=== PATIENT | male | born 1970 | race Caucasian/White ===

== ENCOUNTER 2022-11-16 23:36 | Emergency (ER) | payer SELFPAY ==
[2022-11-17 00:08] LABS: Absolute Lymphocytes (CBC) 3.2 K/uL (0.7-4.9); Hematocrit 43.3 % (39.6-49.0); Lymphocytes % 48.6 % (15.3-44.8); MCV 96.8 fL (80-100); MPV 9.3 fL (7.6-11.3); RBC Red Blood Cell Count 4.47 M/uL (4.33-5.43)
[2022-11-17 00:11] LABS: Protime INR 1.1
[2022-11-17 00:27] LABS: ALT/SGPT 23 U/L (16-61); AST/SGOT 12 U/L (15-37); Albumin 3.1 g/dL (3.4-5.0); Alkaline Phosphatase 98 U/L (45-117); BUN Blood Urea Nitrogen 10 mg/dL (7-18); Bicarbonate 24 mEq/L (21-32); Bilirubin Total 0.3 mg/dL (0.2-1.0); Glomerular Filtration Rate 100 ml/min (=/>90); Glucose Level 299 mg/dL (74-106); Magnesium 2.1 mg/dL (1.6-2.4); NT PRO-BNP 54 pg/mL (<125); Potassium 3.9 mEq/L (3.5-5.1); Protein, Total 7.3 g/dL (6.4-8.2); Sodium Level 127 mEq/L (136-145); Troponin High Sensitivity 10.5 pg/mL (<58.9)
[2022-11-17 00:32] LABS: Bilirubin Direct < 0.1 mg/dL (0-0.2); Bilirubin Indirect, Calculated ND mg/dL (0.2-0.8)
[2022-11-17] MEDS ORDERED: INSULIN -REGULAR HUMAN 50 UNIT/0.5 ML ML ONE (03:41)
--- NOTE | 2022-11-17 04:04 | ER ---
Nurse's Notes [facility] Name: Jeromy Zamora Age: 52 yrs Sex: Male : 1970 Arrival Date: 11/16/2022 Time: 23:36 Bed 19 Private MD: Diagnosis: Chest pain, unspecified;Patient's noncompliance with medical treatment and regimen Presentation: 11/16 23:48 Chief complaint: EMS states: 52 YO male complaining of chest pain that started 3 days vc1 ago with history of SC and cardiac stents. Coronavirus screen: Vaccine status: Patient reports receiving the 2nd dose of the covid vaccine. Plus multiple boosters Client denies travel out of the [place] in the last 14 days. At this time, the client does not indicate any symptoms associated with coronavirus-19. Ebola Screen: Patient negative for fever greater than or equal to 101.5 degrees Fahrenheit, and additional compatible Ebola Virus Disease symptoms Patient denies exposure to infectious person. Patient denies travel to an Ebola-affected area in the 21 days before illness onset. No symptoms or risks identified at this time. Initial Sepsis Screen: Does the patient meet any 2 criteria? RR > 20 per min. HR > 90 bpm. Yes Does the patient have a suspected source of infection? No. Patient's initial sepsis screen is negative. Risk Assessment: Do you want to hurt yourself or someone else? Patient reports no desire to harm self or others. Onset of symptoms was November 13, 2022. 23:48 Method Of Arrival: EMS: [facility] vc1 23:48 Acuity: LUCILLE 3 vc1 23:57 Care prior to arrival: Medication(s) given: ASA, 81 mg, x 4, Nitroglycerin, IV vc1 initiated. 20 GA, in the right forearm, Oxygen administered. via nasal cannula. 23:57 Care prior to arrival: IV initiated. 20 GA, in the left antecubital area. vc1 Triage Assessment: 23:52 General: Appears in no apparent distress. Behavior is calm, cooperative, appropriate vc1 for age, Smells of cigarettes. General: Smells of alcohol. Pain: Complains of pain in chest Pain does not radiate. Pain currently is 7 out of 10 on a pain scale. at worst was 9 out of 10 on a pain scale. Quality of pain is described as sharp. EENT: No deficits noted. No signs and/or symptoms were reported regarding the EENT system. Neuro: Level of Consciousness is awake, alert, obeys commands, Oriented to person, place, time, situation, Appropriate for age. Cardiovascular: Capillary refill < 3 seconds Patient's skin is warm and dry. Rhythm is sinus tachycardia Chest pain is described as severe, worse when laying flat, feels like when I had my previous SC. Respiratory: Airway is patent Respiratory effort is even, unlabored, Respiratory pattern is symmetrical, tachypnea. GI: No deficits noted. No signs and/or symptoms were reported involving the gastrointestinal system. : No deficits noted. No signs and/or symptoms were reported regarding the genitourinary system. Derm: No deficits noted. No signs and/or symptoms reported regarding the dermatologic system. Musculoskeletal: No deficits noted. No signs and/or symptoms reported regarding the musculoskeletal system. Historical: - Allergies: 23:52 Morphine; snw - Social history:: Smoking status: Patient reports the use of cigarette tobacco products, smokes two packs cigarettes per day. Screenin:55 [facility] ED Fall Risk Assessment (Adult) History of falling in the last 3 months, vc1 including since admission No falls in past 3 months (0 pts) Confusion or Disorientation No (0 pts) Intoxicated or Sedated Yes (3 pts) Impaired Gait No (0 pts) Mobility Assist Device Used No (0 pt) Altered Elimination No (0 pt) Score/Fall Risk Level 3 or more points = High Risk Oriented to surroundings, Maintained a safe environment, Educated pt \T\ family on fall prevention, incl call for assistance when getting out of bed. Abuse screen: Denies threats or abuse. Nutritional screening: No deficits noted. Tuberculosis screening: No symptoms or risk factors identified. Assessment: 11/17 00:00 Reassessment: No changes from previously documented assessment. Patient and/or family vc1 updated on plan of care and expected duration. Pain level reassessed. Patient is alert, oriented x 3, equal unlabored respirations, skin warm/dry/pink. 01:00 Reassessment: No changes from previously documented assessment. Patient and/or family vc1 updated on plan of care and expected duration. Pain level reassessed. Patient is alert, oriented x 3, equal unlabored respirations, skin warm/dry/pink. 02:00 Reassessment: No changes from previously documented assessment. Patient and/or family vc1 updated on plan of care and expected duration. Pain level reassessed. Patient is alert, oriented x 3, equal unlabored respirations, skin warm/dry/pink. 03:00 Reassessment: No changes from previously documented assessment. Patient and/or family vc1 updated on plan of care and expected duration. Pain level reassessed. Patient is alert, oriented x 3, equal unlabored respirations, skin warm/dry/pink. 04:00 Reassessment: No changes from previously documented assessment. Patient and/or family vc1 updated on plan of care and expected duration. Pain level reassessed. Patient is alert, oriented x 3, equal unlabored respirations, skin warm/dry/pink. Vital Signs: 11/16 23:48 BP 165 / 65; Pulse 110; Resp 22; Temp 98.2; Pulse Ox 91% on R/A; Weight 90.72 kg; vc1 Height 6 ft. 2 in. ; Pain 7/10; 11/17 01:06 BP 134 / 69; Pulse 95; Resp 23; Pulse Ox 95% ; vc1 02:00 BP 119 / 70; Pulse 67; Resp 20; Pulse Ox 98% ; vc1 03:00 BP 135 / 66; Pulse 78; Resp 26; Pulse Ox 97% ; vc1 04:00 BP 122 / 63; Pulse 75; Resp 21; Pulse Ox 96% ; vc1 11/16 23:48 Body Mass Index 25.68 (90.72 kg, 187.96 cm) vc1 11/16 23:48 Pain Scale: Adult vc1 ED Course: 11/16 23:39 Patient arrived in ED. kd3 23:45 [facility]intron [facility]C [facility] snw 23:45 Santino Wise MD is Attending Physician. snw 23:48 Melinda Latif RN is Primary Nurse. vc1 23:52 Triage completed. vc1 23:52 Arm band placed on right wrist. vc1 23:55 Patient has correct armband on for positive identification. Bed in low position. Call vc1 light in reach. Client placed on continuous cardiac and pulse oximetry monitoring. NIBP monitoring applied. 23:55 Maintain EMS IV. Dressing intact. Good blood return noted. Site clean \T\ dry. Gauge \T\ vc 1 site: 20 G LFA, 20 G RAC. Oxygen administration via nasal cannula \T\ 3L/min. 11/17 00:28 XRAY Chest (1 view) In Process Unspecified. EDMS 01:18 CT Head Brain wo Cont In Process Unspecified. EDMS 01:18 CT Aorta for Dissection In Process Unspecified. EDMS 04:23 No provider procedures requiring assistance completed. IV discontinued, intact, vc1 bleeding controlled, No redness/swelling at site. Pressure dressing applied. Administered Medications: 03:37 Drug: Insulin Regular Human IVP 5 units {Co-Signature: kd3 (Yana Smith RN).} Route: vc1 IVP; Site: right antecubital; 04:13 Follow up: Response: No adverse reaction vc1 Medication: 11/16 23:56 VIS not applicable for this client. vc1 Outcome: 11/17 04:03 Discharge ordered by . snw 04:23 Discharged to home ambulatory. vc1 04:23 Condition: good 04:23 Discharge instructions given to patient, Instructed on discharge instructions, follow up and referral plans. Demonstrated understanding of instructions, follow-up care. 04:25 Patient left the ED. vc1 Signatures: Dispatcher [employer] EDMS Shona Cintron, CINDY-C CLOTH SPREADER-Csnw Yana Smith, HERMAN RN kd3 Melinda Latif RN RN 1 Yana Smith RN kd3 Corrections: (The following items were deleted from the chart) 11/16 23:52 23:52 PMHx: COPD; snw snw 23:52 23:52 PMHx: Myocardial infarction; snw snw 23:52 23:52 PMHx: CVA; snw snw 23:52 23:52 PMHx: Asthma; snw snw 23:52 23:52 PMHx: Diabetes - NIDDM; snw snw 23:52 23:52 PMHx: Hypertension; snw snw
--- NOTE | 2022-11-17 04:04 | EDPHYS ---
Physician Documentation [facility] Name: Jeromy Zamora Age: 52 yrs Sex: Male : 1970 Arrival Date: 11/16/2022 Time: 23:36 Bed 19 Private MD: ED Physician Santino Wise HPI: 11/17 00:08 This 52 yrs old Male presents to ER via EMS with complaints of Chest Pain. snw 00:08 The patient or guardian reports chest pain that is located primarily in the anterior snw chest wall, bilaterally. Onset: 4 day(s) ago, and became persistent. The pain radiates to left back. The chest pain is described as a pressure. Severity of pain: At its worst the pain was moderate. The patient has experienced similar episodes in the past. The patient has not recently seen a physician. pt is supposed to take multiple medications that he does not take for cardiac stents, CVA history. 04:33 Pt states he has not taken his medications in 2 years. can't afford them. Continues to snw smoke 1.5 ppd, drinks ETOH. Historical: - Allergies: 11/16 23:52 Morphine; snw - Social history:: Smoking status: Patient reports the use of cigarette tobacco products, smokes two packs cigarettes per day. ROS: 11/17 00:09 Constitutional: Negative for fever, chills, and weight loss, Eyes: Negative for injury, snw pain, redness, and discharge, ENT: Negative for injury, pain, and discharge, Neck: Negative for injury, pain, and swelling. Abdomen/GI: Negative for abdominal pain, nausea, vomiting, diarrhea, and constipation. : Negative for injury, bleeding, discharge, and swelling, MS/Extremity: Negative for injury and deformity, Skin: Negative for injury, rash, and discoloration, Neuro: Negative for headache, weakness, numbness, tingling, and seizure, Psych: Negative for depression, anxiety, suicide ideation, homicidal ideation, and hallucinations. Cardiovascular: Positive for chest pain, of the back and chest. Respiratory: Positive for shortness of breath. Back: Positive for pain at rest. Exam: 00:07 Head/Face: Normocephalic, atraumatic. Eyes: Pupils equal round and reactive to light, snw extra-ocular motions intact. Lids and lashes normal. Conjunctiva and sclera are non-icteric and not injected. Cornea within normal limits. Periorbital areas with no swelling, redness, or edema. ENT: Nares patent. No nasal discharge, no septal abnormalities noted. Tympanic membranes are normal and external auditory canals are clear. Oropharynx with no redness, swelling, or masses, exudates, or evidence of obstruction, uvula midline. Mucous membranes moist. Neck: Trachea midline, no thyromegaly or masses palpated, and no cervical lymphadenopathy. Supple, full range of motion without nuchal rigidity, or vertebral point tenderness. No Meningismus. Chest/axilla: Normal chest wall appearance and motion. Nontender with no deformity. No lesions are appreciated. Cardiovascular: Regular rate and rhythm with a normal S1 and S2. No gallops, murmurs, or rubs. Normal PMI, no JVD. No pulse deficits. Respiratory: Lungs have equal breath sounds bilaterally, clear to auscultation and percussion. No rales, rhonchi or wheezes noted. No increased work of breathing, no retractions or nasal flaring. Abdomen/GI: Soft, non-tender, with normal bowel sounds. No distension or tympany. No guarding or rebound. No evidence of tenderness throughout. 00:07 Back: No spinal tenderness. No costovertebral tenderness. Full range of motion. MS/ Extremity: Pulses equal, no cyanosis. Neurovascular intact. Full, normal range of motion. Neuro: Awake and alert, GCS 15, oriented to person, place, time, and situation. Cranial nerves II-XII grossly intact. Motor strength 5/5 in all extremities. Sensory grossly intact. Cerebellar exam normal. Normal gait. Psych: Awake, alert, with orientation to person, place and time. Behavior, mood, and affect are within normal limits. 00:07 Constitutional: The patient appears alert, awake, hyperemic 00:07 Skin: Appearance: Color: erythematous. Vital Signs: 11/16 23:48 BP 165 / 65; Pulse 110; Resp 22; Temp 98.2; Pulse Ox 91% on R/A; Weight 90.72 kg; vc1 Height 6 ft. 2 in. ; Pain 7/10; 11/17 01:06 BP 134 / 69; Pulse 95; Resp 23; Pulse Ox 95% ; vc1 02:00 BP 119 / 70; Pulse 67; Resp 20; Pulse Ox 98% ; vc1 03:00 BP 135 / 66; Pulse 78; Resp 26; Pulse Ox 97% ; vc1 04:00 BP 122 / 63; Pulse 75; Resp 21; Pulse Ox 96% ; vc1 11/16 23:48 Body Mass Index 25.68 (90.72 kg, 187.96 cm) vc1 11/16 23:48 Pain Scale: Adult vc1 MDM: 11/16 23:52 Patient medically screened. snw 11/17 00:10 ECG:. The patient was not given aspirin in the Emergency Department. Administered by [facility]. Data reviewed: vital signs, nurses notes. Historians other than the Patient: EMS: [facility]. Care significantly affected by the following Social Determinants of Health: Smokes 1.5 ppd, drink ETOH, does not take his medications secondary to cost. Counseling: I had a detailed discussion with the patient and/or guardian regarding: the historical points, exam findings, and any diagnostic results supporting the discharge/admit diagnosis, lab results, radiology results. 04:32 Response to treatment: There is no appreciated change of the patient's symptoms at this snw time. Special discussion: Based on the patient's history, exam, and Dx evaluation, there is no indication for emergent intervention or inpatient Tx. It is understood by the patient/guardian that if the Sx's persist or worsen they need to return immediately for re-evaluation. Based on the history and exam findings, there is no indication for further emergent testing or inpatient evaluation. I discussed with the patient/guardian the need to see the roller cleaner for further evaluation of the symptoms. I discussed with the patient/guardian the need to see the primary care provider for further evaluation of the symptoms. 11/16 23:45 Order name: Basic Metabolic Panel; Complete Time: 00:33 snw 11/16 23:45 Order name: CBC with Diff; Complete Time: 00:11 snw 11/16 23:45 Order name: LFT's; Complete Time: 00:33 snw 11/16 23:45 Order name: Magnesium; Complete Time: 00:33 snw 11/16 23:45 Order name: NT PRO-BNP; Complete Time: 00:33 snw 11/16 23:45 Order name: PT-INR; Complete Time: 00:11 snw 11/16 23:45 Order name: Troponin HS; Complete Time: 00:33 snw 11/17 03:00 Order name: Troponin High Sensitivity; Complete Time: 03:31 snw 11/17 03:02 Order name: Glucose, Ancillary Testing; Complete Time: 03:06 EDMS 11/16 23:45 Order name: XRAY Chest (1 view) snw 11/16 23:51 Order name: CT Head Brain wo Cont snw 11/16 23:51 Order name: CT Aorta for Dissection snw 11/16 23:45 Order name: EKG; Complete Time: 23:46 snw 11/17 03:00 Order name: EKG; Complete Time: 03:01 snw 11/16 23:45 Order name: Cardiac monitoring; Complete Time: 23:46 snw 11/16 23:45 Order name: EKG - Nurse/Tech; Complete Time: 23:46 snw 11/16 23:45 Order name: IV Saline Lock; Complete Time: 23:46 snw 11/16 23:45 Order name: Labs collected and sent; Complete Time: 00:05 snw 11/16 23:45 Order name: O2 Per Protocol; Complete Time: 23:46 snw 11/16 23:45 Order name: O2 Sat Monitoring; Complete Time: 23:46 snw 11/17 02:41 Order name: FSBS; Complete Time: 02:49 snw 11/17 03:00 Order name: EKG - Nurse/Tech; Complete Time: 03:13 snw EC/04 23:45 Rate is 114 beats/min. Rhythm is regular. QRS [place] is Normal. OK interval is normal. QT snw interval is normal. Q waves are Present in leads II, III, aVF. Clinical impression: NSR w/ Non-specific ST/T Changes. 11/17 03:10 Rate is 85 beats/min. QRS [place] is Normal. [place] interval is normal. QRS interval is snw normal. QT interval is normal. Q waves are Present in leads II, III, aVF. Clinical impression: Normal ECG. Administered Medications: 03:37 Drug: Insulin Regular Human IVP 5 units {Co-Signature: kd3 (Yana Smith RN).} Route: vc1 IVP; Site: right antecubital; 04:13 Follow up: Response: No adverse reaction vc1 Disposition: 20:25 Co-signature as Attending Physician, Santino Wise MD I agree with the assessment sp4 and plan of care. I reviewed the patient's care provided by the Advanced Practice Provider and agree with the diagnosis and treatment plan. Disposition Summary: 11/17/22 04:03 Discharge Ordered Location: Home snw Condition: Stable snw Diagnosis - Chest pain, unspecified snw - Patient's noncompliance with medical treatment and regimen snw Followup: snw - With: Emergency Department - When: As needed - Reason: Worsening of condition Followup: snw - With: Private Physician - When: 1 - 2 days - Reason: Recheck today's complaints, Continuance of care, Re-evaluation by your physician Discharge Instructions: - Discharge Summary Sheet snw - Nonspecific Chest Pain, Adult snw - Hypertension, Adult snw - How to Take Your Blood Pressure, [id number] snw - Aspirin and Your Heart snw - Form - Blood Pressure Record Sheet snw Forms: - Work release form snw - Medication Reconciliation Form snw - Thank You Letter snw - Antibiotic Education snw - Prescription Opioid Use snw - [email or web address] snw Signatures: Dispatcher [employer] EDMS Shona Cintron, CINDY-C [employer]UD[employer] PROFESSOR-Csnw Melinda Latif RN RN vc1 Santino Wise MD MD sp4 Yana Smith RN kd3 Corrections: (The following items were deleted from the chart) 11/16 23:52 23:52 PMHx: COPD; snw snw 23:52 23:52 PMHx: Myocardial infarction; snw snw 23:52 23:52 PMHx: CVA; snw snw 23:52 23:52 PMHx: Asthma; snw snw 23:52 23:52 PMHx: Diabetes - NIDDM; snw snw 23:52 23:52 PMHx: Hypertension; snw snw
[2022-11-17 04:45] VITALS: TEMP 98.2
[2022-11-17 04:50] VITALS: BP 122/63; O2SAT 96
--- NOTE | 2022-11-17 12:27 | EKG ---
Test Date: 2022-11-17 Test Time: 03:10:56 Force Variation Equipment Tender: DANYEL MEASUREMENT RESULTS: Intervals: Rate: 85 [place]: 170 QRSD: 100 QT: 398 QTc: 473 [place]: P: 44 [place]: 170 QRS: 76 T: 67 INTERPRETIVE STATEMENTS: Normal sinus rhythm Normal ECG Compared to ECG 11/16/2022 23:39:21 Sinus tachycardia no longer present Electronically Signed On 11-17-22 12:27:31 CDT by Davidson Scott
--- NOTE | 2022-11-17 12:29 | EKG ---
Test Date: 2022-11-16 Test Time: 23:39:21 Patient Care Coordinator: IGNACIO MEASUREMENT RESULTS: Intervals: Rate: 114 MO: 156 QRSD: 92 QT: 348 QTc: 479 [place]: P: 63 MO: 156 QRS: 84 T: 63 INTERPRETIVE STATEMENTS: Sinus tachycardia Possible Left atrial enlargement Borderline ECG Compared to ECG 01/10/2017 21:37:11 Sinus rhythm no longer present Incomplete right bundle-branch block no longer present Electronically Signed On 11-17-22 12:28:29 CDT by Davidson Scott
--- NOTE | 2022-11-17 13:27 | RAD REPORT ---
EXAM DESCRIPTION: CT - Angio Aorta For Dissection - 11/17/2022 6:41 am CLINICAL HISTORY: 52 years, Male, chest/back pain COMPARISON: None. TECHNIQUE: Multiple transaxial tomograms of the thoracic and abdominal aorta from the lung apex to t he ischial tuberosities utilizing 3 mm slice thickness at 3 mm interval reconstruction after the admi nistration of large bolus of IV contrast for complete opacification of the thoracic, abdominal aorta and iliac arteries. 2-D and 3-D multiplanar reformats, volume rendering technique and maximum intensity projection images were generated and reviewed. This exam was performed according to our departmental dose-optimization protocol, which includes auto mated exposure control, adjustment of the mA and/or kV according to patient size and/or use of iterat johnathan reconstruction technique. FINDINGS: Thoracic aorta: The thoracic aorta demonstrate minimal intimal cortication involving the aortic arch and minimally al joão the descending thoracic aorta. There is no evidence for aneurysm/or dissection. There is normal b ranching pattern of the great vessels with no evidence for significant stenosis/or occlusion proximal aspect. Abdominal aorta: The abdominal aorta demonstrate diffuse atherosclerotic disease extending into the aortic bifurcation and iliac arteries. There is no evidence for aneurysm/or dissection. The iliac arteries demonstrate no evidence for significant occlusion/or stenosis. The celiac trunk, superior mesenteric artery and inferior mesenteric artery demonstrate to be patent with no definitive evidence for significant stenosis/or occlusion. There are single bilateral renal arteries with no evidence for significant stenosis. Chest: The lung parenchyma demonstrate to be clear. No significant pulmonary nodules and/or masses are ident ified. There are minimal dependent atelectatic changes posterior segment lower lobes. The trachea mainstem bronchus demonstrate to be unremarkable. There is no pleural/or pericardial effu sions. The heart is normal in size there are questionable minimal calcification of the left ventricular wall perhaps corresponding to previous focal areas of infarction. There are coronary artery calcification s and/or stenting. The central portions of the pulmonary arteries demonstrate normal opacification wi th no evidence for significant filling defects that will suggest pulmonary embolus. There is no significant mediastinal and/or hilar lymphadenopathy. The axillary regions demonstrate to be clear. The bone windows demonstrate no significant skeletal lesions. Abdomen and pelvis: The liver, gallbladder, spleen, adrenal glands, pancreas demonstrate to be unremarkable. The kidneys demonstrate normal uptake of contrast media. No evidence for nephrolithiasis/or hydroneph rosis. The unopacified stomach, small bowel and large bowel demonstrate to be unremarkable. Minimal divertic ulosis within the sigmoid colon. The appendix is unremarkable. The urinary bladder demonstrate to be within normal limits. The prostate gland is slightly prominent perhaps related to BPH. There is no retroperitoneal lymphadenopathy. Scattered subclinical left peria ortic lymph nodes and minimal haziness within the retroperitoneum could correspond to perhaps minimal fluid/or inflammatory changes. There is no evidence for ascites. The bone windows demonstrate no fracisco dence for fracture/or significant skeletal lesions. IMPRESSION: No evidence for significant filling defects that will suggest pulmonary embolus. Atherosclerotic disease of the thoracic and abdominal aorta without evidence for aneurysm or dissecti on. Coronary artery calcifications and/or stenting. Questionable minimal calcification of the left ventricular wall perhaps corresponding to previous foc al areas of infarction. Scattered subclinical left periaortic lymph nodes and minimal haziness within the retroperitoneum cou ld correspond to perhaps minimal fluid/or inflammatory changes. Slightly prominent prostate gland perhaps related to BPH. Electronically signed by: Earl Larson MD 11/17/2022 2:03 AM CDT Due to temporary technical issues with the PACS/Fluency reporting system, reports are being signed by the in house radiologist without review as a courtesy to ensure prompt reporting. The interpreting r adiologist is fully responsible for the content of the report.
--- NOTE | 2022-11-18 11:00 | RAD REPORT ---
EXAM DESCRIPTION: CT - Head Brain Wo Cont - 11/17/2022 6:41 am CLINICAL HISTORY: 52 years Male PAIN COMPARISON: CT head 02/03/2022. TECHNIQUE: Noncontrast CT of the head. This exam was performed according to our departmental dose-optimization program, which includes autom ated exposure control, adjustment of the mA and/or kV according to patient size and/or use of iterati ve reconstruction technique. FINDINGS: Parenchyma: No acute hemorrhage, large territorial infarction, or mass effect. Mild diffus e cortical loss. Ventricles and extra-axial spaces: Appropriate for age and degree of volume loss. Visualized paranasal sinuses: Clear. Mastoid air cells: Clear. Bones: No acute focal abnormality. Chronic appearing deformity of the left medial orbital wall. Additional comment: Intracranial atherosclerosis. IMPRESSION: No acute intracranial findings. Electronically signed by: Sharron Herbert MD 11/17/2022 1:26 AM CDT Due to temporary technical issues with the PACS/Fluency reporting system, reports are being signed by the in house radiologists without review as a courtesy to insure prompt reporting. The interpreting radiologist is fully responsible for the content of the report.
--- NOTE | 2022-11-18 11:21 | RAD REPORT ---
EXAM DESCRIPTION: RAD - Chest Single View - 11/17/2022 12:26 am CLINICAL HISTORY: CHEST PAIN TECHNIQUE: AP chest COMPARISON: None available for comparison FINDINGS: CHEST: Heart: The cardiomediastinal silhouette is within normal limits. Lungs: No focal consolidation. Mediastinum: Unremarkable Pleura: No appreciable effusion. No pneumothorax. Bones: Intact IMPRESSION: No acute cardiopulmonary disease. Electronically signed by: Bradley Bucio MD 11/17/2022 12:39 AM CDT Due to temporary technical issues with the PACS/Fluency reporting system, reports are being signed by the in house radiologists without review as a courtesy to insure prompt reporting. The interpreting radiologist is fully responsible for the content of the report.
== END 2022-11-17 04:25 | disposition home or self-care (01) ==
LOC: ER 23:36
DX: R07.89 Other chest pain (principal); Z91.199 Patient's noncompliance with other medical treatment and regimen due to unspecified reason
CPT/HCPCS: 36415; 70450; 71045; 71275; 74175; 80048; 80076; 82947; 83735; 83880; 84484; 85025; 85610; 93005; 96374; 99285; J1815; Q9967

== ENCOUNTER 2023-01-11 21:17 | Emergency (ER) | payer SELFPAY ==
--- OUTSIDE RECORDS SUMMARY | 2023-01-11 21:22 | XMS REPORT | Continuity of Care Document ---
:1970 Author Organization [facility] t Address [address] [place] [address] Care Team Providers Name Role Phone Pcp, Patient Does Not Have A Primary Care Physician [phone] AMAURI RHODES Attending Clinician Alethea Aditi Sauer RN Attending Clinician Unavailable MAURA GHOSH Attending Clinician Unavailable Rodrigo Kuo MD Attending Clinician Maura Ghosh MD Attending Clinician Mary Jane Sinclair DPM Attending Clinician [phone] MARY JANE SINCLAIR Attending Clinician Unavailable Doctor Unassigned, [place] Attending Clinician Unavailable Brigido Tracey MD Attending Clinician Jami Penaloza MD Attending Clinician JAMI PENALOZA Attending Clinician Unavailable Sharon Amin LMSW F Attending Clinician Unavailable ROSHAN PARHAM Attending Clinician Unavailable Francisco Beatty MD Attending Clinician Guillermo Vega MD Attending Clinician Roshan Parham MD Attending Clinician Shelli De Souza RN Attending Clinician Unavailable FRANCISCO BEATTY Attending Clinician Unavailable Jami Scruggs RN Attending Clinician Mary Allen LVN Attending Clinician Al Poole MD Attending Clinician Selina Julian MD Attending Clinician Charissa SUTTON, Lola Omalley Attending Clinician Unavailable Bill NAVAS, Stephane Attending Clinician RAJWINDER REEVES Attending Clinician Unavailable Familia Emmanuel DO, Serge Attending Clinician [phone] Rush ALLEN, Rajwinder Attending Clinician Althea Nunn MA Attending Clinician Unavailable LUNA NOWAK Attending Clinician Unavailable Luna Nowak DO Attending Clinician Debora ALLEN, Paulino Attending Clinician Provider, [facility] Attending Clinician Unavailable Josee Ivy PA-C Attending Clinician JOSEE IVY Attending Clinician Unavailable Amauri Rhodes MD Attending Clinician Arturo Aguirre MD Attending Clinician [phone] Jeffry Ivey MD Attending Clinician Jacques Luque MD Attending Clinician Pilar Velasquez Attending Clinician Pilar JAIME Attending Clinician Unavailable Sade Cortez Attending Clinician Nikkie Lua RN Attending Clinician Unavailable Jess ROSEN, Cleopatra Campa Attending Clinician HALIMA STEINBERG Attending Clinician Unavailable CRISTA PAYNE Attending Clinician Unavailable HEIDI MELGOZA Attending Clinician Unavailable ANISH QUEZADA Attending Clinician Unavailable ARTURO AGUIRRE Admitting Clinician Unavailable MAURA GHOSH Admitting Clinician Unavailable Maura Ghosh MD Admitting Clinician ROCIO HERRERA Admitting Clinician Unavailable ROSHAN PARHAM Admitting Clinician Unavailable Roshan Parham MD Admitting Clinician Selina Julian MD Admitting Clinician SELINA JULIAN Admitting Clinician Unavailable RAJWINDER REEVES Admitting Clinician Unavailable Rush ALLEN, Rajwinder Admitting Clinician LUNA NOWAK Admitting Clinician Unavailable Arturo Aguirre MD Admitting Clinician [phone] Jacques Luque MD Admitting Clinician EMERGENCY ROOM, EMERGENCY Admitting Clinician Unavailable ISAIAH SUAREZ Admitting Clinician Unavailable II, RICKIE W Admitting Clinician Unavailable TERRELL MORAN Admitting Clinician Unavailable Payers Payer Name Policy Type Policy Number Effective Date Expiration Date S tyesha MEDICAID SSI PENDING 2020 PENDING 00:00:00 MEDICAID 365 [id number] 2021 2021 VENDOR 00:00:00 00:00:00 Problems Condition Condition Condition Status Onset Resolution Last Treating Co mments Source Name Details Category Date Date Treatment Clinician Date Chest Chest Disease Active 2021-05 Univers pain, pain, 2-19 ity of unspecif[place] d type 00 Medical Branch 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:00: [place] with right with right 00 Me dical diabetic diabetic Branch foot foot infection infection Angina at Angina at Disease Active 2019-05 Uni vers rest rest 1-13 ity of 00:00: [place] 00 Medical Branch Foot Foot Disease Active 2019-05 Univers osteomyeli osteomyeli 1-08 it y of tis, right tis, right [place] Coronary Coronary Disease Active Unive rs artery artery 1-30 ity of disease disease 00:00: [place] involving involving 00 Medi [place] Branch coronary coronary artery of artery of [place] heart with heart with other form other form of angina of angina pectoris pectoris History of History of Disease Active U nivers PTCA PTCA 1-30 ity of 00:00: [place] 00 Medical Branch Essential Essential Disease Active Uni vers hypertensi hypertensi 1-30 it y of on on 00:00: [place] 00 Medical Branch 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 had unilatera l numbness and weakness that resolved Allergies, Adverse Reactions, Alerts Allergy Allergy Status Severity Reaction(s) Onset Inactive Treating Comm ents Source Name Type Date Date Clinician Morphine Propensi Active Rash 2019-05 Univer s ty to 05-22 ity of adverse 00:00: [place] reaction 00 Medical s Branch MORPHINE DRUG Active Rash 2019-05 Univers INGREDI 05-22 ity of 00:00: [place] 00 Medical Branch Social History Social Habit Start Date Stop Date Quantity Comments Source Gender identity [facility] [place] [facility] Sexual orientation [facility]iver [facility] [place] [facility] History of tobacco Chews Tobacco Uni versity of use [facility] [place] [facility] Exposure to 2022-04-23 2022-05-03 Not sure [facility] SARS-CoV-2 (event) 00:00:00 21:48:00 [facility] [place] [facility] Alcohol intake 2021-12-03 2021-12-03 Current drinker Unive rsity of 00:00:00 00:00:00 of alcohol [facility] (finding) Branch History of Social 2021-11-30 2021-11-30 Univers ity of function 00:00:00 00:00:00 [facility] [place] [facility] Cigarettes smoked 2021-11-30 2021-11-30 Univers ity of current (pack per 00:00:00 00:00:00 ) - Reported Branch Cigarette 2021-11-30 2021-11-30 University of pack-years 00:00:00 00:00:00 [facility] [place] [facility] Tobacco Comment 2021-11-30 2021-11-30 .25 cans/day Univers ity of 00:00:00 00:00:00 [facility] [place] [facility] Tobacco use and 2021-11-30 2021-11-30 User of Universit y of exposure 00:00:00 00:00:00 smokeless [facility] tobacco [place] Alcohol Comment 2021-04-16 2021-04-16 12 pack/day Universi ty of 00:00:00 00:00:00 [facility] [place] [facility] History [facility] 2020-03-28 2020-03-28 5 University o f Alcohol Frequency 00:00:00 00:00:00 [facility] Branch History SDOH 2020-03-28 2020-03-28 3 University o f Alcohol Std Drinks 00:00:00 00:00:00 [facility] [place] [facility] History SDHI 2020-03-28 2020-03-28 99 University o f Alcohol Binge 00:00:00 00:00:00 [facility] al Branch History [facility] Food 2020-03-28 2020-03-28 1 Univers ity of Worry 00:00:00 00:00:00 [facility] [place] [facility] History SDHI Food 2020-03-28 2020-03-28 1 Univers ity of Scarcity 00:00:00 00:00:00 [facility] [place] [facility] History SDHI 2020-03-28 2020-03-28 1 [place] o f Transport Med 00:00:00 00:00:00 [facility] History [facility] 2020-03-28 2020-03-28 2 [place] o Transport Non-Med 00:00:00 00:00:00 [facility] Sex Assigned At [birth year] Universit y of 00:00:00 00:00:00 [facility] [place] [facility] Smoking Status Start Date Stop Date Source Smokes tobacco daily 2021-11-30 00:00:00 Univers ity of [facility] [place] [facility] Medications Ordered Filled Start Stop Current Ordering Indication Dosage Frequency Signature Comments Components Source Medication Medication Date Date Medication? Clinician (SIG) Name Name insulin NPH Yes [id number] inject 30 Univers and regular 5-02 Units ity of human 70-30 00:00: under the [place] 100 unit/mL 00 skin daily Me dical (70-30) before Branch injection breakfast AND 20 Units before evening meal. gabapentin Yes [id number] 300mg Take 1 Univers 300 mg 5-02 capsule by ity of capsule 00:00: mouth 3 [place] 00 (three) Medical times Branch daily. amLODIPine Yes [id number] 5mg Take 1 U nivers 5 mg tablet 5-02 tablet by ity of 00:00: mouth [place] 00 daily. Medical Branch atorvastati Yes [id number] 80mg Take 1 Univers n 80 mg 5-02 tablet by ity of tablet 00:00: mouth at [place] 00 bedtime. Medical Branch insulin NPH 0 Yes [id number] inject 30 Univers and regular 5-02 Units ity of human 70-30 00:00: under the [place] 100 unit/mL 00 skin daily Me dical (70-30) before Branch injection breakfast AND 20 Units before evening meal. gabapentin Yes [id number] 300mg Take 1 Univers 300 mg 5-02 capsule by ity of capsule 00:00: mouth 3 (three) Medical times [place] daily. amLODIPine Yes [id number] 5mg Take 1 U nivers 5 mg tablet 5-02 tablet by ity of 00:00: mouth [place] 00 daily. Medical Branch atorvastati Yes [id number] 80mg Take 1 Univers n 80 mg 5-02 tablet by ity of tablet 00:00: mouth at [place] 00 bedtime. Medical Branch insulin NPH Yes [id number] inject 30 Univers and regular 5-02 Units ity of human 70-30 00:00: under the [place] 100 unit/mL 00 skin daily Me dical (70-30) before Branch injection breakfast AND 20 Units before evening meal. gabapentin 0 Yes [id number] 300mg Take 1 Univers 300 mg 5-02 capsule by ity of capsule 00:00: mouth 3 (three) Medical times [place] daily. amLODIPine 0 Yes [id number] 5mg Take 1 U nivers 5 mg tablet 5-02 tablet by ity of 00:00: mouth [place] 00 daily. Medical Branch atorvastati Yes [id number] 80mg Take 1 Univers n 80 mg 5-02 tablet by ity of tablet 00:00: mouth at [place] 00 bedtime. Medical Branch insulin NPH 0 Yes [id number] inject 30 Univers and regular 5-02 Units ity of human 70-30 00:00: under the [place] 100 unit/mL 00 skin daily Me dical (70-30) before Branch injection breakfast AND 20 Units before evening meal. gabapentin 0 Yes [id number] 300mg Take 1 Univers 300 mg 5-02 capsule by ity of capsule 00:00: mouth 3 (three) Medical times [place] daily. amLODIPine 0 Yes [id number] 5mg Take 1 U nivers 5 mg tablet 5-02 tablet by ity of 00:00: mouth [place] 00 daily. Medical Branch atorvastati Yes [id number] 80mg Take 1 Univers n 80 mg 5-02 tablet by ity of tablet 00:00: mouth at [place] 00 bedtime. Medical Branch insulin NPH 0 Yes [id number] inject 30 Univers and regular 5-02 Units ity of human 70-30 00:00: under the [place] 100 unit/mL 00 skin daily Me dical (70-30) before Branch injection breakfast AND 20 Units before evening meal. gabapentin Yes [id number] 300mg Take 1 Univers 300 mg 5-02 capsule by ity of capsule 00:00: mouth (three) Medical times [place] daily. amLODIPine Yes [id number] 5mg Take 1 U nivers 5 mg tablet 5-02 tablet by ity of 00:00: mouth [place] 00 daily. Medical Branch atorvastati Yes [id number] 80mg Take 1 Univers n 80 mg 5-02 tablet by ity of tablet 00:00: mouth at [place] 00 bedtime. Medical Branch insulin NPH 0 Yes [id number] inject 30 Univers and regular 5-02 Units ity of human 70-30 00:00: under the [place] 100 unit/mL 00 skin daily Me dical (70-30) before Branch injection breakfast AND 20 Units before evening meal. gabapentin 0 Yes [id number] 300mg Take 1 Univers 300 mg 5-02 capsule by ity of capsule 00:00: mouth 3 (three) Medical times [place] daily. amLODIPine 2021-0 Yes [id number] 5mg Take 1 U nivers 5 mg tablet 5-02 tablet by ity of 00:00: mouth [place] 00 daily. Medical Branch atorvastati Yes [id number] 80mg Take 1 Univers n 80 mg 5-02 tablet by ity of tablet 00:00: mouth at [place] 00 bedtime. Medical Branch aspirin 81 2021- No [id number] 81mg Take 1 Univers mg chewable 3-07 21- tablet by it y of tablet 00:00: 04:59 mouth [place] 00 :00 daily for Medical 180 days. Branch lisinopriL 2021- No [id number] 10mg Take 1 Univers 10 mg 3-07 21- tablet by ity of tablet 00:00: 04:59 mouth [place] 00 :00 daily for Medical 180 days. Branch aspirin 81 2021- No [id number] 81mg Take 1 Univers mg chewable 3-07 21- tablet by it y of tablet 00:00: 04:59 mouth [place] 00 :00 daily for Medical 180 days. Branch lisinopriL 2021- No [id number] 10mg Take 1 Univers 10 mg 3-01-13 tablet by ity of tablet 00:00: 04:59 mouth [place] 00 :00 daily for Medical 180 days. [place] aspirin 81 2021- No [id number] 81mg Take 1 Univers mg chewable -01-13 tablet by it y of tablet 00:00: 04:59 mouth [place] 00 :00 daily for Medical 180 days. [place] lisinopriL 2021- No [id number] 10mg Take 1 Univers 10 mg 3-07 21- tablet by ity of tablet 00:00: 04:59 mouth [place] 00 :00 daily for Medical 180 days. [place] aspirin 81 2021- No [id number] 81mg Take 1 Univers mg chewable 3-01-13 tablet by it y of tablet 00:00: 04:59 mouth [place] 00 :00 daily for Medical 180 days. [place] lisinopriL 2021- No [id number] 10mg Take 1 Univers 10 mg 3-01-13 tablet by ity of tablet 00:00: 04:59 mouth [place] 00 :00 daily for Medical 180 days. [place] insulin Yes [id number] BG 170 to U nivers lispro, 3 220, give ity of human, 100 00:00: 1 unit. BG [place] unit/mL 00 221 to Medical injection 270, give Branc h 2 units. BG 271 to 300, give 3 units. BG > 300, give 4 units, recheck in 3 hours and cover again with sliding scale.Fsbg Testing based on ordered frequency. thiamine Yes [id number] 100mg Take 1 U nivers 100 mg 3-02 tablet by ity of tablet 00:00: mouth [place] 00 daily. [facility] Branch insulin 0 Yes [id number] BG 170 to U nivers lispro, 3- 220, give ity of human, 100 00:00: 1 unit. BG [place] unit/mL 00 221 to Medical injection 270, give Branc h 2 units. BG 271 to 300, give 3 units. BG > 300, give 4 units, recheck in 3 hours and cover again with sliding scale.Fsbg Testing based on ordered frequency. thiamine Yes [id number] 100mg Take 1 U nivers 100 mg 3-02 tablet by ity of tablet 00:00: mouth [place] 00 daily. [facility] Branch insulin Yes [id number] BG 170 to U nivers lispro, 3- 220, give ity of human, 100 00:00: 1 unit. BG [place] unit/mL 00 221 to Medical injection 270, give Branc h 2 units. BG 271 to 300, give 3 units. BG > 300, give 4 units, recheck in 3 hours and cover again with sliding scale.Fsbg Testing based on ordered frequency. thiamine Yes [id number] 100mg Take 1 U nivers 100 mg 3-02 tablet by ity of tablet 00:00: mouth [place] 00 daily. [facility] Branch insulin Yes [id number] BG 170 to U nivers lispro, 3- 220, give ity of human, 100 00:00: 1 unit. BG [place] unit/mL 00 221 to Medical injection 270, give Branc h 2 units. BG 271 to 300, give 3 units. BG > 300, give 4 units, recheck in 3 hours and cover again with sliding scale.Fsbg Testing based on ordered frequency. thiamine Yes [id number] 100mg Take 1 U nivers 100 mg 3-02 tablet by ity of tablet 00:00: mouth [place] 00 daily. [facility] Branch insulin Yes [id number] BG 170 to U nivers lispro, 3- 220, give ity of human, 100 00:00: 1 unit. BG [place] unit/mL 00 221 to Medical injection 270, give Branc h 2 units. BG 271 to 300, give 3 units. BG > 300, give 4 units, recheck in 3 hours and cover again with sliding scale.Fsbg Testing based on ordered frequency. thiamine Yes [id number] 100mg Take 1 U nivers 100 mg 3-02 tablet by ity of tablet 00:00: mouth [place] 00 daily. Medical Branch insulin Yes [id number] BG 170 to U nivers lispro, 3-02 220, give ity of human, 100 00:00: 1 unit. BG [place] unit/mL 00 221 to Medical injection 270, give Branc h 2 units. BG 271 to 300, give 3 units. BG > 300, give 4 units, recheck in 3 hours and cover again with sliding scale.Fsbg Testing based on ordered frequency. thiamine Yes [id number] 100mg Take 1 U nivers 100 mg 3-02 tablet by ity of tablet 00:00: mouth [place] 00 daily. Medical Branch Immunizations Ordered Filled Immunization Date Status Comments [facility] Immunization Name Name SARS-COV-2 COVID-19 2021-09-14 Completed Unive rsity of MODERNA 0.25ML 00:00:00 [place] [facility] BOOSTER VACCINE Branch SARS-COV-2 COVID-19 2021-09-14 Completed Unive rsity of MODERNA 0.25ML 00:00:00 [place] [facility] BOOSTER VACCINE Branch SARS-COV-2 COVID-19 2021-09-14 Completed Unive rsity of MODERNA 0.25ML 00:00:00 [place] [facility] BOOSTER VACCINE Branch SARS-COV-2 COVID-19 2021-09-14 Completed Unive rsity of MODERNA 0.25ML 00:00:00 [place] [facility] BOOSTER VACCINE Branch SARS-COV-2 COVID-19 2021-09-14 Completed Unive rsity of MODERNA 0.25ML 00:00:00 [place] Med[facility] BOOSTER VACCINE Branch SARS-COV-2 COVID-19 2021-09-14 Completed Unive rsity of MODERNA 0.25ML 00:00:00 [place] [facility] BOOSTER VACCINE Branch SARS-COV-2 COVID-19 2020-10-29 Completed Unive rsity of MODERNA VACCINE 00:00:00 [facility] ical Branch SARS-COV-2 COVID-19 2020-10-29 Completed Unive rsity of MODERNA VACCINE 00:00:00 [place] [facility] ical Branch SARS-COV-2 COVID-19 2020-10-29 Completed Unive rsity of MODERNA VACCINE 00:00:00 [facility] [place] [facility] ical Branch SARS-COV-2 COVID-19 2020-10-29 Completed Unive rsity of MODERNA VACCINE 00:00:00 [place] [facility] ical Branch SARS-COV-2 COVID-19 2020-10-29 Completed Unive rsity of MODERNA 12+ YRS 00:00:00 [facility] [place] [facility] ical VACCINE Branch SARS-COV-2 COVID-19 2020-10-29 Completed Unive rsity of MODERNA 12+ YRS 00:00:00 [facility] [place] [facility] ical VACCINE Branch SARS-COV-2 COVID-19 2020-10-01 Completed Unive rsity of MODERNA VACCINE 00:00:00 [facility] Branch SARS-COV-2 COVID-19 2020-10-01 Completed Unive rsity of MODERNA VACCINE 00:00:00 [facility] [place] [facility] ical Branch SARS-COV-2 COVID-19 2020-10-01 Completed Unive rsity of MODERNA VACCINE 00:00:00 [facility] Branch SARS-COV-2 COVID-19 2020-10-01 Completed Unive rsity of MODERNA VACCINE 00:00:00 [facility] Branch SARS-COV-2 COVID-19 2020-10-01 Completed Unive rsity of MODERNA 12+ YRS 00:00:00 [facility] [place] [facility] ical VACCINE Branch SARS-COV-2 COVID-19 2020-10-01 Completed Unive rsity of MODERNA 12+ YRS 00:00:00 [facility] VACCINE Branch Td 2018-12-12 Completed University of 00:00:00 [facility] [place] [facility] Td 2018-12-12 Completed University of 00:00:00 [facility] [place] [facility] Td 2018-12-12 Completed University of 00:00:00 [facility] [place] [facility] Td 2018-12-12 Completed University of 00:00:00 [facility] [place] [facility] Td 2018-12-12 Completed University of 00:00:00 [facility] [place] [facility] TD, NOS 2018-12-12 Completed University of 00:00:00 [facility] [place] [facility] Vital Signs Vital Name Observation Time Observation Value Comments Source Systolic blood 2022-05-04 03:49:00 144 mm[Hg] Univer sity pressure [facility] [place] [facility] Diastolic blood 2022-05-04 03:49:00 91 mm[Hg] [facility] 2022-05-04 03:49:00 97 /min [facility] Body temperature 2022-05-04 03:49:00 37.11 [place] [facility] Respiratory rate 2022-05-04 03:49:00 18 /min [facility] Body height 2022-05-04 03:49:00 188 cm [facility] Body weight 2022-05-04 03:49:00 86.183 kg [facility] BMI 2022-05-04 03:49:00 24.39 kg/m2 [facility] Oxygen saturation in 2022-05-04 03:49:00 98 /min [facility] blood by [facility] Pulse oximetry [place] Body temperature 2021-11-30 20:52:00 36.44 [place] [facility] Body height 2021-11-30 20:52:00 188 cm [facility] Body weight 2021-11-30 20:52:00 92.67 kg [facility] BMI 2021-11-30 20:52:00 26.23 kg/m2 [facility] Procedures Procedure Date / Time Performing Clinician Source Performed URINE DRUG (IMMUNOASSAY) 2022-05-04 04:39:00 [facility] DRUG [facility] SCREEN W/O REFLEX XR CHEST 1 VW 2022-05-04 04:35:00 Rodrigo Kuo [facility] CREATINE KINASE 2022-05-04 04:05:00 Rodrigo Kuo [facility] MAGNESIUM 2022-05-04 04:05:00 Rodrigo Kuo [facility] TROPONIN I 2022-05-04 04:05:00 Rodrigo Kuo [facility] COMP. METABOLIC PANEL 2022-05-04 04:05:00 Rodrigo Kuo [facility] ([id number]) [facility] ETHANOL 2022-05-04 04:05:00 Rodrigo Kuo o f [facility] [place] [facility] CBC WITH DIFF 2022-05-04 04:05:00 Rodrigo Kuo [place] o f [facility] [place] [facility] PROTHROMBIN TIME / INR 2022-05-04 04:05:00 [facility] 2022-05-04 04:05:00 Rodrigo Kuo [facility] THRMPLAS [facility] N-TERMINAL PRO-BNP 2022-05-04 04:05:00 Rodrigo Kuo [facility] NOTICE OF PRIVACY 2022-05-04 03:34:01 Doctor Unassigned, No Univ [facility] PRACTICES Name [facility] CONSENT/REFUSAL FOR 2022-05-04 03:32:51 [facility], [facility]AT[facility] DME/SUPPLY JUSTIFICATION 2021-11-30 05:01:00 Doctor Unassigned, No [facility] Encounters Start End Encounter Admission Attending Care Care Encounter Source Date/Time Date/Time Type Type Clinicians Facility Department ID 2021-03-16 Emergency [facility] [id number] [facility]15 Emergency [facility] [id number] Univers 19:54:08 [facility] 2020-03-28 [facility]patient [facility] [id number] Univers 05:45:00 LUCINDAA [facility] 2022-12-11 2022-12-11 Nurse Phani TRIPP [id number] Univers 00:00:00 00:00:00 [id number] [id number] Eligio as [id number] [address] 2022-05-03 2022-05-03 Emergency X AUGIE WIROBERTO CARLOS KATH [id number] Univers 21:59:00 23:40:00 MAURA josey [facility] 2022-05-03 2022-05-03 Emergency Rodrigo Kuo [facility] [id number] Univers 21:59:00 23:40:00 Maura Ghosh [id number] [id number] [id number] [facility] 084 Branch 2021-12-15 2021-12-15 Telephone [facility] [id number] Univers 00:00:00 00:00:00 Mary Jane PRIMARY [id number] ity of [id number] [place] [facility] [id number] [facility] 198 Branch 2021-11-30 2021-11-30 Outpatient R [facility] [id number] Univers 16:15:00 16:40:01 MARY JANE ity of [facility] [place] [facility] 2021-11-30 2021-11-30 Office [facility] [id number] Univers 16:15:00 16:40:01 Visit Mary Jane PRIMARY [id number] ity of A CARE [id number] [facility] s [place] [id number] [facility] [address] [place] 2021-11-30 2021-11-30 Outpatient R [facility] [id number] Univers 16:15:00 16:15:00 MARY JANE ity of [facility] [place] [facility] 2021-11-30 2021-11-30 Orders Doctor JOSEE [id number] Univers 00:00:00 00:00:00 Only Unassigned, ELVIA [id number] ity of [place] [facility] [id number] Eligio as [id number] [facility] 009 Branch 2021-11-13 2021-11-13 Outpatient R [facility] [id number] Univers 11:30:00 11:30:00 MARY JANE ity of [facility] [place] [facility] 2021-10-11 2021-10-11 Emergency X [facility] ERT [id number] Univers 03:51:00 07:57:00 [place]y of [place] [facility] [facility] [place] 2021-10-11 2021-10-11 Emergency TRAUMA 1.2.233.695 [id number] Univers 03:51:00 07:57:00 CENTER 350.1.13.10 [place] [id number] [facility] laina [address] [place] 2021-09-14 2021-09-14 Office Brigido Tracey [facility] 1.2.840.114 [id number] Univers 09:10:00 09:40:00 Visit Jami Penaloza A PRIMARY 350.1.13.10 it[place] [id number] [place]ical [address] [place] 2021-09-14 2021-09-14 Outpatient R TREMAINE [facility] [id number] Univers 09:10:00 09:10:00 JAMI ity [facility] 2021-09-14 2021-09-14 [facility] [id number] Univers 09:10:00 09:10:00 JAMI ity [facility] 2021-09-14 2021-09-14 Patient Brennan [facility] 1.2.840.114 [id number] Univers 00:00:00 00:00:00 Outreach Sharon F PRIMARY 350.1.13.10 i ty [place] [phone] [place] dicny [address] [place] 2021-08-10 2021-08-10 [facility] [id number] Univers 16:45:00 17:04:53 MARY JANE ity [facility] 2021-08-10 2021-08-10 [facility] 1.2.655.577 [id number] Univers 16:45:00 17:04:53 Visit Mary Jane PRIMARY 350.1.13.10 it[place] of [place] [phone] [place] [address] [place] 2021-08-10 2021-08-10 [facility] [id number] Univers 16:45:00 17:04:53 MARY JANE ity [facility] 2021-08-10 2021-08-10 Orders Doctor TRIPP 1.2.840.114 [id number] Univers 00:00:00 00:00:00 Only Unassigned, ELVIA 350.1.13.10 ity of [place] [facility] 4.2.7.2.686 Eligio as [phone] [facility] [address] 2021-08-03 2021-08-03 Outpatient R [facility] [id number] Univers 16:45:00 16:45:00 MARY JANE ity of [facility] 2021-08-03 2021-08-03 Outpatient R [facility] [id number] Univers 16:45:00 16:45:00 MARY JANE ity of [facility] [place] 2021-07-15 2021-07-15 Outpatient X ROSHAN PARHAM [facility] [id number] Univers 01:09:00 17:58:00 ity of [facility] 2021-07-15 2021-07-15 Emergency Francisco Beatty 1.2.840.11 [id number] Univers 01:09:00 17:58:00 Vega Guillermo Keene ELVIA 350.1.13 .10 ity of Roshan Parham [facility] 4.2.7.2.686 [place] [phone] [facility] [address] 2021-07-14 2021-07-14 Nurse JOSEE De Souza 1.2.840.114 [id number] Univers 00:00:00 00:00:00 Triage Shelli GAN 350.1.13.10 it y of HOSPITAL 4.2.7.2.686 [place]lig[place] as [id number] [facility] [address] 2021-07-10 2021-07-11 Emergency X FRANCISCO BEATTY [facility] ERT [id number] Univers 23:04:00 00:37:00 ity of [facility] [place] [facility] 2021-07-10 2021-07-11 Emergency Francisco Beatty [place] 1.2.840.114 [id number] Univers 23:04:00 00:37:00 W LION 350.1.13.10 [place] [id number] [facility] [address] 2021-07-08 2021-07-08 Patient Jami Scruggs 1.2.840.114 [id number] Univers 00:00:00 00:00:00 Outreach E LEAVITT 350.1.13.10 i ty [place] [phone] [facility] [address] [place] 2021-07-06 2021-07-06 [facility] 1.2.840.114 [id number] Univers 16:09:10 23:59:00 Encounter Mary Jane PRIMARY 350.1.13.10 ity of [place] [id number] [place] dical [address] [place] 2021-07-06 2021-07-06 Outpatient [facility] [id number] Univers 15:45:00 16:20:22 MARY JANE ity [facility] 2021-07-06 2021-07-06 Office [facility] 1.2.271.170 [id number] Univers 15:45:00 16:20:22 Visit Mary Jane PRIMARY 350.1.13.10 ity [place] [id number] [facility] [address] [place] 2021-07-06 2021-07-06 Outpatient [facility] [id number] Univers 15:45:00 15:45:00 MARY JANE ity [facility] 2021-06-22 2021-06-22 Outpatient R [facility] [id number] Univers 11:15:00 12:01:12 MARY JANE ity [facility] 2021-06-22 2021-06-22 Office [facility] 1.2.828.301 [id number] Univers 11:15:00 12:01:12 Visit Mary Jane PRIMARY 350.1.13.10 ity of [place] [id number] [facility] [address] [place] 2021-06-22 2021-06-22 Outpatient [facility] [id number] Univers 11:15:00 12:01:12 MARY JANE ity of [facility] [place] [facility] 2021-06-09 2021-06-09 Patient Jami Scruggs 1.2.840.114 [id number] Univers 00:00:00 00:00:00 Outreach E [place] 350.1.13.10 [place] [id number] [address] 2021-06-04 2021-06-04 Patient Jami Scruggs 1.2.840.114 [id number] Univers 00:00:00 00:00:00 Outreach E [place] 350.1.13.10 [place] [id number] [address] 2021-05-22 2021-05-22 Patient Jami Scruggs 1.2.840.114 [id number] Univers 13:00:00 13:15:00 Outreach E LEAV[place] 350.1.13.10 [place] [id number] [address] 2021-05-21 2021-05-21 Patient Jami Scruggs 1.2.840.114 [id number] Univers 00:00:00 00:00:00 Outreach E [place] 350.1.13.10 [place] [id number] [address] 2021-05-18 2021-05-18 Office Pradip WIROBERTO CARLOS 1.2.135.189 [id number] Univers 10:30:00 10:45:00 Visit Mary Jane PRIMARY 350.1.13.10 ity [place] [id number] [address] 2021-05-18 2021-05-18 Outpatient Poonam SINCLAIR [facility] [id number] Univers 10:30:00 10:30:00 MARY JANE ity of [facility] [place] [facility] 2021-05-18 2021-05-18 Outpatient Poonam SINCLAIR [facility] [id number] Univers 10:30:00 10:30:00 MARY JANE ity of [facility] [place] [facility] 2021-05-01 2021-05-01 Outpatient R PRADIP [facility] [id number] Univers 09:00:00 09:29:28 MARY JANE ity of [facility] [place] [facility] 2021-05-01 2021-05-01 Office [facility] 1.2.206.295 [id number] Univers 09:00:00 09:29:28 Visit Mary Jane PRIMARY 350.1.13.10 ity of [place] [id number] Va dical [address] 2021-04-29 2021-04-29 Transition MARCI Allen 1.2.840.114 [id number] Univers 00:00:00 00:00:00 of Care Mary LEAVITT 350.1.13.10 [place] [id number] [facility] [address] 2021-04-26 2021-04-28 Hospital Al Poole 1.2.840. 114 [id number] Univers 19:06:00 17:35:00 Encounter Jami Penaloza 350.1.13.10 ity of [facility] 4.2.7.2.686 [place] [id number] [facility] [address] [place] 2021-04-28 2021-04-28 Patient Jami Scruggs 1.2.840.114 [id number] Univers 00:00:00 00:00:00 Outreach E LEAVITT 350.1.13.10 i [place] [id number] [facility] [address] 2021-04-27 2021-04-27 Outpatient R PRADIP [facility] [id number] Univers 11:15:00 11:15:00 MARY JANE ity of [facility] [place] [facility] 2021-04-27 2021-04-27 Outpatient R PRADIP [facility] [id number] Univers 11:15:00 11:15:00 MARY JANE ity of [facility] [place] [facility] 2021-04-27 2021-04-27 Outpatient R [facility] KATH [id number] Univers 11:15:00 11:15:00 MARY JANE ity of [facility] [place] [facility] 2021-04-27 2021-04-27 Outpatient R [facility] KATH [id number] Univers 11:15:00 11:15:00 MARY JANE ity of [facility] 2021-04-26 2021-04-26 Nurse Lola Carrington 1.2.840.114 [id number] Univers 00:00:00 00:00:00 Triage ELVIA 350.1.13.10 it y of HOSPITAL 4.2.7.2.686 [place] as [id number] [address] 2021-04-26 2021-04-26 Telephone [facility] 1.2.840.114 [id number] Univers 00:00:00 00:00:00 Mary Jane PRIMARY 350.1.13.10 ity of [place] [id number] Va dical [address] [place] 2021-04-23 2021-04-23 Telephone [facility] 1.2.840.114 [id number] Univers 00:00:00 00:00:00 Mary Jane PRIMARY 350.1.13.10 ity of [place] [id number] Va dical [address] [place] 2021-04-21 2021-04-21 [facility] [id number] Univers 11:54:24 23:59:00 MARY JANE ity of [facility] [place] [facility] 2021-04-21 2021-04-21 [facility] 1.2.840.114 [id number] Univers 11:54:24 23:59:00 Encounter Mary Jane PRIMARY 350.1.13.10 ity of [place] [id number] Va dical [address] [place] 2021-04-21 2021-04-21 Outpatient R OGUNLANA, [facility] [id number] Univers 11:54:24 23:59:00 MARY JANE ity [facility] 2021-04-21 2021-04-21 Outpatient R PRADIP [facility] [id number] Univers 11:45:00 14:31:41 MARY JANE ity [facility] 2021-04-21 2021-04-21 Office [facility] 1.2.198.226 [id number] Univers 11:08:06 14:31:41 Visit Mary Jane PRIMARY 350.1.13.10 ity of [place] [id number] [facility] [address] 2021-04-20 2021-04-20 Transition MARCI Allen 1.2.840.114 [id number] Univers 00:00:00 00:00:00 of Care Mary LEAVITT 350.1.13.10 [place] [id number] [facility] [address] 2021-04-18 2021-04-18 Telephone [facility] 1.2.583.648 [id number] Univers 00:00:00 00:00:00 Stephane PRIMARY 350.1.13.10 it y [place] [id number] Va dicny [address] 2021-04-16 2021-04-17 Inpatient X RUSH [facility] KATH [id number] Univers 01:04:00 21:30:00 RAJWINDER ity [facility] 2021-04-16 2021-04-17 Inpatient X RUSH [facility] KATH [id number] Univers 01:04:00 21:30:00 RAJWINDER ity [facility] 2021-04-16 2021-04-17 Hospital Serge Epps 1.2.840.114 [id number] Univers 01:04:00 21:30:00 Encounter Rajwinder Reeves ELVIA 350.1.13.10 ity of HOSPITAL 4.2.7.2.686 [place] as [id number] [facility] [address] 2021-04-16 2021-04-17 Inpatient X RUSH [facility] KATH [id number] Univers 01:04:00 21:30:00 RAJWINDER ity [facility] 2021-04-17 2021-04-17 Surgery MARCEL Sinclair 1.2.521.042 [id number] Univers 13:58:00 15:21:00 Mary Jane SEALY 350.1.13.10 ity of [facility] 4.2.7.2.686 [place] [id number] [facility] [address] 2021-02-18 2021-02-18 Case Marci Nunn 1.2.840.114 [id number] Univers 00:00:00 00:00:00 Management Althea Leavitt 350.1.13.10 ity of [place] [id number] [address] 2020-12-17 2020-12-17 Emergency [facility] 1.2.931.310 [id number] Univers 09:54:00 13:02:00 Rodrigo Alcaraz 350.1.13.10 i ty of [place] [id number] [address] 2020-09-30 2020-09-30 Emergency [facility] ERT [id number] Univers 19:10:00 20:40:00 LUNA carballo [facility] 2020-09-30 2020-09-30 Emergency [facility] 1.2.840.114 [id number] Univers 19:10:00 20:40:00 Luna Alcaraz 350.1.13.10 ity of [place] [phone] [address] 2020-05-30 2020-05-30 Telephone Maxi [facility] 1.2.840.114 [id number] Univers 00:00:00 00:00:00 h, [place] 350.1.13.10 i ty [place] [phone] [address] Office Building 2020-04-08 2020-04-08 Orders Doctor JOSEE 1.2.840.114 [id number] Univers 00:00:00 00:00:00 Only Unassigned, ELVIA 350.1.13.10 ity of [place] [facility] 4.2.7.2.686 Eligio as [id number] [place] [address] [address] 2020-04-04 2020-04-04 Urgent Provider, [facility] Care [facility] 1.2.840.114 [id number] Univers 16:13:50 17:04:52 Care Josee Ivy [facility] 350.1.13.10 ity of [place] 4.2.7.2.686 Eligio as Professio [phone] Va dical nal [address] [place] Office Building One 2020-04-04 2020-04-04 Outpatient R GRAYSON [facility] [id number] Univers 16:20:00 16:20:00 JOSEE carballo of [facility] [place] [facility] 2020-04-01 2020-04-01 Transition Marci Allen 1.2.840.114 [id number] Univers 00:00:00 00:00:00 of Care Mary Leavitt 350.1.13.10 ity [place] [id number] [address] 2020-04-01 2020-04-01 Patient Jami Scruggs Marci 1.2.840.114 [id number] Univers 00:00:00 00:00:00 Outreach E Leavitt 350.1.13.10 i ty of [place] [id number] [address] 2020-04-01 2020-04-01 Transition Marci Allen 1.2.840.114 [id number] Univers 00:00:00 00:00:00 of Care Mary Leavitt 350.1.13.10 it[place] [id number] [address] 2020-03-28 2020-03-29 [facility] Amauri Rhodes 1.2.840.114 [id number] Univers 05:45:00 13:42:00 Encounter NbaArturo 350.1.13.10 ity of Hospital 4.2.7.2.686 [place] as [id number] [facility] [address] 2020-03-25 2020-03-25 Transition Marci Allen 1.2.840.114 [id number] Univers 00:00:00 00:00:00 of Care Mary Leavitt 350.1.13.10 ity of [place] [id number] [facility] [address] 2020-03-22 2020-03-23 Hospital Jeffry Ivey S [place] 1.2.840. 114 [id number] Univers 21:17:00 01:12:00 Encounter EneJacques lew DEWART 350.1.13.10 [place] [id number] [facility] [address] 2020-03-22 2020-03-22 Emergency X [facility] ERT [id number] Univers 21:04:00 21:04:00 ity of [facility] [place] [facility] 2019-12-29 2019-12-29 Emergency Pilar Jaime [facility] 1.2.840.114 [id number] Univers 16:11:00 17:15:00 Haley Alcaraz 350.1.13.10 i ty of [place] [id number] [facility] [address] 2019-12-29 2019-12-29 Emergency X Pilar JAIME [facility] ERT [id number] Univers 16:11:00 16:11:00 ity of [facility] [place] [facility] 2019-12-29 2019-12-29 Orders Doctor TRIPP 1.2.840.114 [id number] Univers 00:00:00 00:00:00 Only Unassigned, ELVIA 350.1.13.10 ity of [place] [facility] 4.2.7.2.686 Eligio as [id number] [facility] [address] 2019-12-18 2019-12-18 Emergency X [facility] ERT [id number] Univers 23:15:00 23:34:00 ity of [facility] 2019-12-18 2019-12-18 Emergency [facility] 1.2.615.816 [id number] Univers 23:15:00 23:34:00 Angeladevaughn Lissa 350.1.13.10 i ty [facility] 4.2.7.2.686 [facility] [phone] [place] [address] [place] 2019-01-11 2019-01-11 Nurse Chanell Nikkie JOSEE 1.2.840.114 [id number] Univers 00:00:00 00:00:00 Triage ELVIA 350.1.13.10 it y [facility] 4.2.7.2.686 [facility] [phone] [facility] [address] 2018-12-12 2018-12-12 Emergency [facility] 1.2.811.164 [id number] Univers 20:56:06 21:50:00 Cleopatra Campa [place] 350.1.13.10 ity [facility] 4.2.7.2.686 [facility] [phone] [address] 2012-03-21 2012-03-21 Emergency [facility] ERT [id number] Univers 13:45:00 15:40:00 HALIMA 1 [facility] 2005-04-20 2005-04-23 Emergency [facility] [id number] Univers 23:57:00 16:33:00 CRISTA 3 [facility] 2005-03-24 2005-03-25 Emergency X [facility] ERT [id number] Univers 23:33:00 15:17:00 HEIDI 3 ity o f [facility] 2005-03-14 2005-03-16 Outpatient X DAMIEN [facility] KATH [id number] Univers 01:43:00 13:59:00 ANISH 2 [facility] 2005-03-06 2005-03-07 Outpatient [facility] KATH [id number] Univers 03:37:00 19:01:00 ANISH 3 [facility] Results This patient has no known results. Notes Date/Time Note Provider Source 2022-12-11 Formatting of this note might be differe nt from the original. Aditi Ahuja RN [facility] - Health 18:46:00-00:00 Regarding: feet and back pain x3 days ----- Message from Arvin Thomas sent at 11/14 6:43 PM CDT ----- Melissa Zamora is a 52 year old male Patient states both feet are hurting, starting from ankle and going into back x3 days. Would like to know what to do. 2022-12-11 [facility] 18:46:00-00:00 Adult Triage Assessment Last Clinic Visit: 05/03/22 ED Chest pain Primary Symptom: Feet pain, painful, and swollen Onset / Duration: 4-5 days Location / Description: Both , radiates to lower back , barely able to walk Pain / Severity: 10/10 Associated Symptoms: Swollen , with black spots, right food "has a bunch of discolored spots" Fever / Method: None Hydration: Drinking and voiding as normal Treatment so far: Kevin 2 hours ago , 2 tabs Effect on ADL's: Barely able to walk LMP: NA Pre-existing condition / Immunocompromised: CAD, T2DM, HTN Reason for Disposition Purple or black skin on foot or toe Protocols used: Foot Doec-[id number]-GB Patient calling in severe pa in with both feet, ankles are swollen, and he has multiple black areas on the feet. Advised to present to ED for evaluation. He declines [place] or [place], and "I know [place] will want to transfe r me to [place]". Suggested he get a ride to [place]. He will see if he can get a ride, and go to [place]. Aditi Ahuja RN [facility] Access Center Triage Nurse
--- NOTE | 2023-01-11 21:47 | ER ---
Nurse's Notes [facility] Name: Jeromy Zamora Age: 52 yrs Sex: Male : 1970 Arrival Date: 01/11/2023 Time: 21:17 Bed IW10 Private MD: Diagnosis: Acute midsternal chest pain Presentation: 01/11 21:25 Chief complaint: EMS states: pt c/o chest pain and chronic right leg pain. jw7 21:25 Coronavirus screen: At this time, the client does not indicate any symptoms associated jw with coronavirus-19. Ebola Screen: No symptoms or risks identified at this time. Initial Sepsis Screen: Does the patient meet any 2 criteria? No. Patient's initial sepsis screen is negative. Does the patient have a suspected source of infection? No. Patient's initial sepsis screen is negative. Risk Assessment: Do you want to hurt yourself or someone else? Patient reports no desire to harm self or others. Onset of symptoms was January 11, 2023. 21:25 Method Of Arrival: EMS: [facility] 21:25 Acuity: LUCILLE 3 jw7 21:25 Care prior to arrival: Medication(s) given: ASA, 325 mg. jw7 21:25 Care prior to arrival: IV initiated. 18 GA, in the right forearm. jw7 21:41 Note pt upset angry refusing to let staff remove IV reports is going to [place] Code ha1 gonzales called [place] [employer] notified. Triage Assessment: 21:25 General: Appears in no apparent distress. comfortable, Behavior is calm, cooperative, jw7 Smells of alcohol. 21:25 Pain: Denies pain. EENT: No deficits noted. No signs and/or symptoms were reported jw7 regarding the EENT system. Neuro: No deficits noted. Snowden Agitation-Sedation Scale (RASS): 0 - Alert and Calm Level of Consciousness is awake, alert, obeys commands, Oriented to person, place, time, situation. Cardiovascular: No deficits noted. Denies chest pain, Capillary refill < 3 seconds Clubbing of nail beds is absent JVD is absent Patient's skin is warm and dry. Respiratory: No deficits noted. Airway is patent Trachea midline Respiratory effort is even, unlabored, Respiratory pattern is regular, symmetrical. GI: No deficits noted. No signs and/or symptoms were reported involving the gastrointestinal system. : No deficits noted. No signs and/or symptoms were reported regarding the genitourinary system. Derm: Skin is healthy with good turgor, Skin is dry, Skin is normal, Skin temperature is warm Wound noted right foot Wound is diabetic ulcer. Musculoskeletal: No deficits noted. No signs and/or symptoms reported regarding the musculoskeletal system. Historical: - Allergies: 21:25 Morphine; jw7 - PMHx: 21:25 Diabetes mellitus; jw7 - Immunization history:: Client reports receiving the 2nd dose of the Covid vaccine. - Social history:: Smoking status: Patient reports the use of cigarette tobacco products, smokes one pack cigarettes per day. Patient uses alcohol, on a daily basis. - Family history:: not pertinent. Screenin:30 [facility] ED Fall Risk Assessment (Adult) History of falling in the last 3 months, jw7 including since admission No falls in past 3 months (0 pts) Confusion or Disorientation No (0 pts) Intoxicated or Sedated Yes (3 pts) Impaired Gait Yes (1 pt) Mobility Assist Device Used No (0 pt) Altered Elimination No (0 pt) Score/Fall Risk Level 3 or more points = High Risk Oriented to surroundings, Maintained a safe environment. Abuse screen: Denies threats or abuse. Denies injuries from another. Nutritional screening: No deficits noted. Tuberculosis screening: No symptoms or risk factors identified. Assessment: 21:45 General: pt removed vital signs monitor equipment, walked out of room swearing and jw7 yelling, stating that he was in pain and that he was going to leave and go to a different hospital. naveed montoya was called on pt due to him yelling and cussing at staff, attempted to remove IV, pt yelled "don't fucking touch me", pt walked out of building at this time. Ladraius HERNÁNDEZ notified of situation. . Vital Signs: 21:25 BP 148 / 75; Pulse 99; Resp 21 S; Pulse Ox 93% on R/A; jw7 ED Course: 21:22 Patient arrived in ED. rv1 21:22 Santino Wise MD is Attending Physician. sp4 21:25 Arm band placed on. jw7 21:25 No provider procedures requiring assistance completed. jw7 21:25 Maintain EMS IV. Dressing intact. Good blood return noted. Site clean \\T\\ dry. Gauge \\T\\ jw 7 site: 18g right forearm . 21:30 Patient has correct armband on for positive identification. Bed in low position. Call jw7 light in reach. 21:45 Provided Education on: pt left before education could be provided. jw7 21:45 pt left before IV could be dc'd, [place] PD notified. jw7 22:00 XRAY Chest (1 view) In Process Unspecified. EDMS 23:03 Diana Dee, RN is Primary Nurse. jw7 23:06 Triage completed. jw7 Administered Medications: 23:22 CANCELLED (Patient Eloped): morphine IVP or IV 4 mg IVP once over 4 mins jw7 Medication: 21:45 VIS not applicable for this client. jw7 Outcome: 21:41 Discharged to home ambulatory. jw7 21:41 Condition: stable 21:41 Discharge instructions given to pt left before receiving discharge instructions 21:46 Discharge ordered by . jw7 23:23 Patient left the ED. jw7 Signatures: Dispatcher [employer] EDME Diana Dee RN RN jw7 Ayala, Heidy, RN RN Angella Medley1 Santino Wise MD MD sp4 Corrections: (The following items were deleted from the chart) 23:12 23:06 Allergies: Morphine; jw7 jw7 23:12 23:06 Immunization history: Client reports receiving the 2nd dose of the Covid vaccine, jw7 jw7 23:12 23:06 Social history: Smoking status: Patient reports the use of cigarette tobacco jw7 products, smokes one pack cigarettes per day. Patient uses alcohol, on a daily basis. jw7 23:12 23:12 Arm band placed on jw7 jw7 23:15 23:14 No provider procedures requiring assistance completed. jw7 jw7 23:16 21:46 Discharge ordered by . sp4 jw7 23:18 23:18 VIS not applicable for this client. jw7 jw7 23:23 21:25 General: Appears in no apparent distress. comfortable, Behavior is calm, jw7 cooperative, jw7
--- NOTE | 2023-01-11 21:47 | EDPHYS ---
Physician Documentation [facility] Name: Jeromy Zamora Age: 52 yrs Sex: Male : 1970 Arrival Date: 01/11/2023 Time: 21:17 Bed IW10 Private MD: ED Physician Santino Wise HPI: 01/11 21:22 This 52 yrs old Male presents to ER via Unassigned with complaints of chest sp4 pain. 21:41 52-year-old male presents with EMS for complaint of anterior chest pain that is sp4 moderate. Patient was given 4 aspirins while in route. Patient states he has history of several stents specifically for coronary artery stents that were done at [facility]. Patient mostly goes to [facility] based on his report. EMS stated that there is no sign of acute WI on prehospital EKG. Patient appears to have mild intoxication of alcohol. Patient reports he is a chronic smoker. Patient states he has been out of his medications and out of Plavix for the past 2 years.. Historical: - Allergies: 21:25 Morphine; jw7 - PMHx: 21:25 Diabetes mellitus; jw7 - Immunization history:: Client reports receiving the 2nd dose of the Covid vaccine. - Social history:: Smoking status: Patient reports the use of cigarette tobacco products, smokes one pack cigarettes per day. Patient uses alcohol, on a daily basis. - Family history:: not pertinent. ROS: 21:41 Constitutional: Negative for fever, chills, and weight loss, Cardiovascular: Negative sp4 for palpitations, and edema, positive for chest pain 21:41 All other systems are negative. Exam: 21:41 Constitutional: This is a well developed, well nourished patient who is awake, alert, sp4 and in no acute distress. Patient appears mildly intoxicated, has positive facial plethora. Also history of right great toe amputation. Head/Face: Normocephalic, atraumatic. Eyes: Pupils equal round and reactive to light, extra-ocular motions intact. Lids and lashes normal. Conjunctiva and sclera are not injected. Cornea within normal limits. Periorbital areas with no swelling, redness, or edema. ENT: Nares patent. No nasal discharge, no septal abnormalities noted. Tympanic membranes are normal and external auditory canals are clear. Oropharynx with no redness, swelling, or masses, exudates, or evidence of obstruction, uvula midline. Mucous membranes moist. Neck: Trachea midline, no thyromegaly or masses palpated, and no cervical lymphadenopathy. Supple, full range of motion without nuchal rigidity, or vertebral point tenderness. Chest/axilla: Normal chest wall appearance and motion. Nontender with no deformity. No lesions are appreciated. Cardiovascular: Regular rate and rhythm with a normal S1 and S2. No gallops, murmurs, or rubs. Normal PMI, no JVD. No pulse deficits. Respiratory: Lungs have equal breath sounds bilaterally, clear to auscultation and percussion. No rales, rhonchi or wheezes noted. No increased work of breathing, no retractions or nasal flaring. Abdomen/GI: Soft, non-tender, with normal bowel sounds. No distension or tympany. No guarding or rebound. No evidence of tenderness throughout. Back: No spinal tenderness. No costovertebral tenderness. Skin: Warm, dry with normal turgor. Normal color with no rashes, no lesions, and no evidence of cellulitis. MS/ Extremity: Pulses equal, no cyanosis. Neurovascular intact. Full, normal range of motion. Positive for remote right great toe amputation site is clean dry and intact Neuro: Awake and alert, GCS 15, oriented to person, place, time, and situation. Cranial nerves II-XII grossly intact. Motor strength 5/5 in all extremities. Sensory grossly intact. Psych: Awake, alert, with orientation to person, place and time. Mild intoxication, moderate emotional upset Vital Signs: 21:25 BP 148 / 75; Pulse 99; Resp 21 S; Pulse Ox 93% on R/A; jw7 MDM: 21:38 Patient medically screened. sp4 21:41 Differential Diagnosis Chest pain, . Data reviewed: vital signs, nurses notes, EMS sp4 record, old medical records. 21:44 Consideration of Admission/Observation Escalation of care including sp4 admission/observation considered. ED course: Patient arrived with EMS and was assessed prior to being put in the room. Patient was then taken to room #8 in the ER. At that time he became moderately agitated developed worsening emotional upset and determined that he wishes to leave the emergency department. Patient is mentating clearly and patient was given informed discharge prior to departure. Patient left with moderate emotional upset. Normal mental status no impediment from informed discharge. . 01/12 01:36 ED course: Patient apparently has quite an elevated alcohol level. Also signs of sp4 hyponatremia and hyperglycemia. Negative troponin. These results have returned after patient left the emergency department. We did not have a chance to communicate to the patient the results of his blood tests.. 01/11 21:23 Order name: Alcohol Level; Complete Time: 4 01/11 21:23 Order name: Basic Metabolic Panel; Complete Time: sp4 01/11 21:23 Order name: CBC with Diff; Complete Time: sp4 01/11 21:23 Order name: LFT's; Complete Time: 4 01/11 21:23 Order name: Magnesium; Complete Time: sp4 01/11 21:23 Order name: NT PRO-BNP; Complete Time: 4 01/11 21:23 Order name: PT-INR; Complete Time: 4 01/11 21:23 Order name: Troponin HS; Complete Time: sp4 01/11 21:23 Order name: XRAY Chest (1 view); Complete Time: 4 01/11 21:23 Order name: Cardiac monitoring; Complete Time: 23:22 sp4 01/11 21:23 Order name: IV Saline Lock; Complete Time: 23:22 sp4 01/11 21:23 Order name: Labs collected and sent; Complete Time: 23:22 4 01/11 21:23 Order name: O2 Per Protocol; Complete Time: 23:22 sp4 01/11 21:23 Order name: O2 Sat Monitoring; Complete Time: 23:22 sp4 Administered Medications: 01/11 23:22 CANCELLED (Patient Eloped): morphine IVP or IV 4 mg IVP once over 4 mins jw7 Disposition Summary: 01/11/23 21:46 Discharge Ordered Location: Home sp4 Problem: new sp4 Symptoms: are unchanged sp4 Condition: Stable sp4 Diagnosis - Acute midsternal chest pain sp4 Followup: sp4 - With: Private Physician - When: 1 - 2 days - Reason: Recheck today's complaints Discharge Instructions: - Discharge Summary Sheet sp4 - Nonspecific Chest Pain, Adult sp4 Forms: - Patient Portal Instructions sp4 - Leadership Thank You Letter sp4 Signatures: Dispatcher [employer] Diana Casas RN RN jw7 Santino Wise MD MD sp4 Corrections: (The following items were deleted from the chart) 23: 23:06 Allergies: Morphine; jw7 jw7 23: 23:06 Immunization history: Client reports receiving the 2nd dose of the Covid vaccine, jw7 jw7 23: 23:06 Social history: Smoking status: Patient reports the use of cigarette tobacco jw7 products, smokes one pack cigarettes per day. Patient uses alcohol, on a daily basis. jw7 23: 21:23 EKG - Nurse/Tech ordered. sp4 jw7 23:22 21:24 morphine IVP or IV 4 mg IVP once over 4 mins ordered. sp4 jw7
[2023-01-11 21:54] LABS: Absolute Lymphocytes (CBC) 3.1 K/uL (0.7-4.9); Hematocrit 46.6 % (39.6-49.0); Lymphocytes % 42.3 % (15.3-44.8); MCV 97.6 fL (80-100); MPV 9.9 fL (7.6-11.3); Platelets 179 thou/uL (152-406); RBC Red Blood Cell Count 4.77 M/uL (4.33-5.43)
[2023-01-11 22:02] LABS: Protime INR 1.02
--- NOTE | 2023-01-11 22:03 | RAD REPORT ---
EXAM DESCRIPTION: RAD - Chest Single View - 01/11/2023 9:58 pm CLINICAL HISTORY: CHEST PAIN Chest pain. COMPARISON: Chest Single View dated 11/17/2022; CHEST SINGLE VIEW dated 01/06/2009 FINDINGS: Portable technique limits examination quality. The lungs are grossly clear. The heart is normal in size. No displaced fractures. IMPRESSION: No acute intrathoracic process suspected.
[2023-01-11 22:14] LABS: Albumin 3.4 g/dL (3.4-5.0); Bilirubin Direct 0.1 mg/dL (0-0.2); Bilirubin Indirect, Calculated 0.3 mg/dL (0.2-0.8); Bilirubin Total 0.4 mg/dL (0.2-1.0); Magnesium 2.3 mg/dL (1.6-2.4); Protein, Total 7.8 g/dL (6.4-8.2)
[2023-01-12 01:11] VITALS: BP 148/75; O2SAT 93
== END 2023-01-11 23:23 | disposition home or self-care (01) ==
LOC: ER 21:17
DX: R07.89 Other chest pain (principal)
CPT/HCPCS: 36415; 71045; 80048; 80076; 82077; 83735; 83880; 84484; 85025; 85610; 99283